=== PATIENT | female | born 1980 | race Caucasian/White ===

== ENCOUNTER 2019-01-15 10:51 | Emergency (ER) | payer MEDICARE, MEDICAID ==
[~2019-01-15] VITALS: Ht 162.6 cm; Wt 111.6 kg
[~2019-01-15 10:51] MED LIST: AIRBORNE; ALLERGY RELIEF10 M5 PO; APAP500 PO; BENADRYL25 MG PO; Benadryl; CLEOCIN HCL150 MG PO; CYCLOBENZAPRINE10 MG PO; DOXYCYCLINE 10100 M1 PO; FLEXERIL PO; FLONASE 0.05%50 MCG NASAL; HYDROCODON-ACE1 EACH PO; LIDODERM 5%1 PATCH TOP; MOBIC7.5 M1 PO; MULTIVITAMINS1 EAC7 PO; NAPROSYN500 MG; NEURONTIN 300M300 M2 PO; NORFLEX100 MG PO; ORPHENADRINE C100 M2 PO; PRILOSEC 20 MG20 MG PO; TYLENOL EX-STR500 M2 PO; VICODIN 5-5001 EACH PO; VISTARIL 25 MG25 M1 PO; VITAMIN E400 UNIT PO; VITCB500GO PO; Vitamin C; [UNRECOGNIZED DRUG - OTHER]
[2019-01-15] MEDS ORDERED: LEVO-T75 MCG PO (11:18)
[2019-01-15] MEDS ORDERED: DIABETES MED (11:18)
[2019-01-15] MEDS ORDERED: ZANAFLEX4 MG PO (12:03)
[2019-01-15] MEDS ORDERED: IBUPROFEN 800800 M1 PO (12:03)
[2019-01-15 12:57] VITALS: BP 140/82
== END 2019-01-15 12:57 | disposition home or self-care (01) ==
LOC: M.ERS 10:51
DX: S16.1XXA Strain of muscle, fascia and tendon at neck level, initial encounter (principal); S29.012A Strain of muscle and tendon of back wall of thorax, initial encounter; S80.01XA Contusion of right knee, initial encounter; E11.9 Type 2 diabetes mellitus without complications; E03.9 Hypothyroidism, unspecified; K21.9 Gastro-esophageal reflux disease without esophagitis; Z98.51 Tubal ligation status; Z88.0 Allergy status to penicillin; W01.0XXA Fall on same level from slipping, tripping and stumbling without subsequent striking against object, initial encounter; Y93.89 Activity, other specified; Y92.89 Other specified places as the place of occurrence of the external cause; Y99.8 Other external cause status